=== PATIENT | male | born 1970 | race Caucasian/White ===

== ENCOUNTER 2023-03-18 08:04 | Outpatient (CLI) | payer OTHER, SELFPAY | END 2023-03-18 08:05 | disposition home or self-care (01) | PROVIDERS: PCP Family Medicine; Visit Provider Family Medicine | DX: Z13.1 Encounter for screening for diabetes mellitus (principal); Z12.5 Encounter for screening for malignant neoplasm of prostate | CPT/HCPCS: 80048; G0103 ==

== ENCOUNTER 2024-09-15 08:38 | Outpatient (CLI) | payer OTHER, SELFPAY | END 2024-09-15 08:39 | disposition home or self-care (01) | PROVIDERS: PCP Family Medicine; Visit Provider Family Medicine | DX: Z13.6 Encounter for screening for cardiovascular disorders (principal); F90.9 Attention-deficit hyperactivity disorder, unspecified type; Z12.5 Encounter for screening for malignant neoplasm of prostate; Z13.9 Encounter for screening, unspecified | CPT/HCPCS: 80048; 80061; G0103 ==